=== PATIENT | male | born 1945 | race Caucasian/White ===

== ENCOUNTER 2022-01-16 09:47 | Outpatient (CLI) | payer MEDICARE, SELFPAY ==
[2022-01-16 12:21] LABS: Anion Gap 4 (5-15); BUN 13 mg/dL (7-18); BUN/Creat Ratio 12.1 RATIO (10-20); Calcium,Total 8.6 mg/dL (8.5-10.1); Chloride 105 mmol/L (98-107); Cholesterol 197 mg/dL (200); Creatinine, Serum 1.07 mg/dL (0.70-1.30); EST Glomerular Filtration Rate 71 mL/min (>60); Est Glom Filt Rate - Afr Amer 86 mL/min (>60); Glucose 183 mg/dL (74-106); High Density Lipoprotein 45 mg/dL; Potassium 4.3 mmol/L (3.5-5.1); Sodium Level 138 mmol/L (136-145); Triglycerides 105 mg/dL; Very Low Density Lipoprotein 21 mg/dL (5-40)
== END 2022-01-16 23:59 | disposition home or self-care (01) ==
LOC: BIMLAB 09:49
PROVIDERS: PCP Family Medicine; Referring Provider Family Medicine; Visit Provider Family Medicine
DX: N52.9 Male erectile dysfunction, unspecified (principal)
CPT/HCPCS: 36415; 80048; 80061

== ENCOUNTER → 2022-01-21 | Outpatient (CLI) | payer MEDICARE, SELFPAY ==
[2022-01-21 19:11] LABS: Hemoglobin A1c 7.7 % (3.8-5.6)
== END | disposition home or self-care (01) ==
LOC: BIMLAB 15:18
PROVIDERS: PCP Family Medicine; Referring Provider Family Medicine; Visit Provider Family Medicine
DX: R73.09 Other abnormal glucose (principal)
CPT/HCPCS: 36415; 83036

== ENCOUNTER 2022-02-20 09:41 | Outpatient (RCR) | payer MEDICARE, SELFPAY | END 2022-02-26 23:59 | LOC: DC 09:41 | PROVIDERS: PCP Family Medicine; Referring Provider Family Medicine; Visit Provider Family Medicine | DX: E11.9 Type 2 diabetes mellitus without complications (principal) | CPT/HCPCS: 97802 ==

== ENCOUNTER 2022-03-26 12:55 | Outpatient (RCR) | payer MEDICARE, SELFPAY | END 2022-03-28 23:59 | LOC: DC 12:55 | PROVIDERS: PCP Family Medicine; Referring Provider Family Medicine; Visit Provider Family Medicine | DX: E11.9 Type 2 diabetes mellitus without complications (principal) | CPT/HCPCS: 97802 ==

== ENCOUNTER 2022-09-16 13:03 | Outpatient (RCR) | payer MEDICARE, SELFPAY | END 2022-09-28 23:59 | LOC: DC 13:03 | PROVIDERS: PCP Family Medicine; Referring Provider Family Medicine; Visit Provider Family Medicine | DX: E11.9 Type 2 diabetes mellitus without complications (principal) | CPT/HCPCS: 97803 ==

== ENCOUNTER 2022-11-11 13:24 | Outpatient (RCR) | payer MEDICARE, SELFPAY | END 2022-11-26 23:59 | LOC: DC 13:24 | PROVIDERS: PCP Family Medicine; Referring Provider Family Medicine; Visit Provider Family Medicine | DX: E11.9 Type 2 diabetes mellitus without complications (principal) | CPT/HCPCS: 97803 ==

== ENCOUNTER → 2024-06-16 | Outpatient (CLI) | payer MEDICARE, SELFPAY ==
[2024-06-16 17:00] LABS: AST(SGOT) 17 U/L (15-37); Alanine Aminotransfer ALT/SGPT 20 U/L (16-61); Albumin, Serum 3.4 g/dL (3.2-5.0); Alkaline Phosphatase 105 U/L (45-117); Anion Gap 9 (5-15); BUN 17 mg/dL (7-18); Calcium,Total 9.3 mg/dL (8.5-10.1); Chloride 104 mmol/L (98-107); Creatinine, Serum 1.06 mg/dL (0.70-1.30); EST Glomerular Filtration Rate 72 mL/min (>60); Est Glom Filt Rate - Afr Amer 87 mL/min (>60); Globulin 3.4 g/dL (2.2-4.2); Glucose 126 mg/dL (74-106); Potassium 4.2 mmol/L (3.5-5.1); Protein, Total 6.8 g/dL (6.4-8.2); Sodium Level 140 mmol/L (136-145)
== END | disposition home or self-care (01) ==
LOC: BIMLAB 15:49
PROVIDERS: PCP Family Medicine; Referring Provider Family Medicine; Visit Provider Family Medicine
DX: E11.9 Type 2 diabetes mellitus without complications (principal)
CPT/HCPCS: 36415; 80053

== ENCOUNTER → 2025-06-15 | Outpatient (CLI) | payer MEDICARE, SELFPAY ==
[2025-06-15 17:13] LABS: AST(SGOT) 17 U/L (<=37); Alanine Aminotransfer ALT/SGPT 15 U/L (<=46); Albumin, Serum 3.7 g/dL (3.4-4.8); Alkaline Phosphatase 105 U/L (40-129); Anion Gap 11 (5-15); BUN 13 mg/dL (4-19); BUN/Creat Ratio 12.0 RATIO (10-20); Calcium,Total 8.9 mg/dL (7.6-11.0); Carbon Dioxide 23.9 mmol/L (21.0-32.0); Chloride 102 mmol/L (98-108); Globulin 3.0 g/dL (2.2-4.2); Glucose 212 mg/dL (70-99); Potassium 4.2 mmol/L (3.3-5.1)
== END | disposition home or self-care (01) ==
LOC: BIMLAB 15:09
PROVIDERS: PCP Family Medicine; Referring Provider Family Medicine; Visit Provider Family Medicine
DX: E11.9 Type 2 diabetes mellitus without complications (principal)
CPT/HCPCS: 36415; 80053